=== PATIENT | female | born 1945 | race Caucasian/White ===

== ENCOUNTER 2018-04-12 19:36 | Emergency (ER) | payer MEDICARE, OTHER ==
--- NOTE | 2018-04-12 20:03 | Emergency Department Record ---
History of Present Illness - General Chief Complaint: Fall Injury Stated Complaint: FELL HIT HEAD, HEAEDACHE NAUSEA,DISORIENTED Time Seen by Provider: 04/12/18 19:55 Source: Patient, Family Mode of Arrival: Ambulatory Limitations: No limitations - History of Present Illness Initial Comments: 72 yo female presents after a fall 2 hours ago. She missed a step and hit her head on the door threshold. No LOC. No amnesia. She does have a headache and nausea. No confusion. NO blood thinners. No preceding symptoms. MD Complaint: Fall -: Hour(s) (2) Fall From: Down stairs (#) (1), Standing When Fall Occurred: 1-3 hours [employer] Fall Witnessed: Yes, by bystander Place Fall Occurred: Other Loss of Consciousness: None Prolonged Down Time?: No Symptoms Prior to Fall: None Location: Head Location - Extremities: Left: Elbow Severity: Mild Quality: Aching Context: Other Associated Symptoms: Denies - Micah Coma Scale Eye Response: (4) Open spontaneously Motor Response: (6) Obeys commands Verbal Response: (5) Oriented [place] Total: 15 - Related Data Home Medications Medication Instructions Recorded Confirmed Last Taken Levothyroxine Sodium [Synthroid] 50 mcg PO DAILY 04/12/18 04/12/18 Unknown Multivitamin [Multi-Vitamin Daily] 1 tab PO DAILY 04/12/18 04/12/18 Unknown Omeprazole [Prilosec] 20 mg PO DAILY 04/12/18 04/12/18 Unknown Previous Rx's Medication Instructions Recorded Ondansetron [Zofran Odt] 4 mg PO Q8H #12 tab.rapdis 04/12/18 Allergies Allergy/AdvReac Type Severity Reaction Status Date / Time No Known Drug Allergies Allergy Verified 04/12/18 19:53 Review of Systems Constitutional: Denies: Chills, Fever, Malaise, Weakness Eyes: Denies: Eye discharge, Eye pain, Photophobia, Vision change ENT: Denies: Congestion, Throat pain Respiratory: Denies: Cough, Dyspnea Cardiovascular: Denies: Chest pain, Palpitations, Syncope Endocrine: Denies: Fatigue Gastrointestinal: Reports: Nausea. Denies: Abdominal pain, Diarrhea, Vomiting Genitourinary: Denies: Dysuria, Urgency Musculoskeletal: Denies: Arthralgia, Back pain, Joint swelling, Myalgia Skin: Denies: Bruising, Change in color, Rash Neurological: Reports: Headache. Denies: Abnormal gait, Confusion, Numbness, Tingling, Tremors, Vertigo, Weakness Psychiatric: Denies: Anxiety Hematological/Lymphatic: Denies: Blood Clots, Easy bleeding, Easy bruising, Swollen glands Physical Exam - General General Appearance: Alert, Oriented x3, Cooperative, No acute distress Limitations: No limitations - Head Head exam: Atraumatic, Normocephalic, Normal inspection, Other (tender left zoroastrianism, normal inspection) - Eye Eye exam: Normal appearance, PERRL, EOMI. negative: Conjunctival injection, Nystagmus - ENT ENT exam: Normal exam, Mucous membranes moist Ear exam: Normal external inspection Nasal Exam: Normal inspection Mouth exam: Normal external inspection Teeth exam: Normal inspection Throat exam: Normal inspection - Neck Neck exam: Normal inspection, Full ROM. negative: Tenderness - Respiratory Respiratory exam: Normal lung sounds bilaterally. negative: Respiratory distress - Cardiovascular Cardiovascular Exam: Regular rate, Normal rhythm, Normal heart sounds - GI/Abdominal GI/Abdominal exam: Soft. negative: Tenderness - Rectal Rectal exam: Deferred - exam: Deferred - Extremities Extremities exam: Normal inspection. negative: Full ROM, Joint swelling, Normal capillary refill, Pedal edema, Tenderness - Back Back exam: Reports: Normal inspection. Denies: CVA tenderness (R), CVA tenderness (L) - Neurological Neurological exam: Alert, Normal gait, Oriented X3 - Psychiatric Psychiatric exam: Normal affect, Normal mood. negative: Agitated, Anxious - Skin Skin exam: Dry, Intact, Normal color, Warm Course - Reevaluation(s) Reevaluation #1: 04/12/18 21:08 The HCT was reviewed and is negative for bleed. Chronic changes We discussed the results, concussions, home care and reasons to return Disposition Disposition: Discharge Clinical Impression: Head contusion Disposition: Home, Self-Care Condition: (1) Good Instructions: Concussion (ED), Head Injury (ED) Additional Instructions: Return to ED if your symptoms worsen or if you have any new concerns. Take the prescriptions provided today as directed. Call your family doctor to schedule the next available appointment for a recheck. Review the final Emergency Record and test results with your doctor on follow up Prescriptions: Ondansetron [Zofran Odt] 4 mg PO Q8H #12 tab.rapdis Forms: Patient Portal Access Time of Disposition: 21:09 Quality - Quality Measures Quality Measures: N/A, Blunt Head Trauma (>2yr) - Micah Coma Scale [place] Coma Scale: [place] Coma Scale Eye Response: (4) Open spontaneously Motor Response: (6) Obeys commands Verbal Response: (5) Oriented [place] Total: 15 - Blunt Head Trauma - Adult Quality Measure: Measure #415: Utilization of CT for Minor Blunt Head Trauma ICD10 Codes Entered: Yes Was CT ordered: Yes Does Patient Have Any of the Following: No Exclusions Patient Presented Within 24 Hours of Injury: Yes Micah Score: [address] for Minor Blunt Head Trauma: < CT Done, Appropriate Indication > [G9529] Additional Inclusion Criteria: Within 24hrs (AND) GCS of 15 (AND) CT ordered. [ G9530] Indications For CT: Age 65 Years and Older - Blood Pressure Screening Does Patient Have Any of the Following: Active Dx of HTN Blood Pressure Classification: Hypertensive Reading Systolic Measurement: 143 Diastolic Measurement: 65 Screening for High Blood Pressure: Patient Exclusion, Hx of HTN [G9744]
[2018-04-12] MEDS ORDERED: ONDANSETRON 4 MG ODT TABLET SL ONE (21:18)
--- NOTE | 2018-04-13 20:38 | CT SCAN REPORT ---
EXAM: CT SCAN HEAD WO CONTRAST TECHNIQUE: Standard axial images were obtained with coronal and sagittal postprocessed images. INDICATION: Patient hit head. Possible concussion. Hit left side of head. HAND PREFERENCE: Unknown. PRIORS: None. FINDINGS: There is generalized cortical atrophy. There is periventricular white matter changes. Ventricles, cisterns, and sulci appear symmetric. I do not see abnormal extraaxial fluid collections. The calvarium displays no evidence of fracture. The subcutaneous tissues display no significant scalp soft tissue swelling. IMPRESSIONS: NO ACUTE INTRACRANIAL PROCESS. MILD CHRONIC WHITE MATTER CHANGES. NO EVIDENCE OF HEMORRHAGE, MASS, EDEMA, OR A FRACTURE. JOB NUMBER: [id number] [facility]
== END 2018-04-12 21:46 | disposition home or self-care (01) ==
LOC: ER 19:36
DX: S00.83XA Contusion of other part of head, initial encounter (principal); R51 Headache; R11.0 Nausea; M25.522 Pain in left elbow; I10 Essential (primary) hypertension; W10.9XXA Fall (on) (from) unspecified stairs and steps, initial encounter
CPT/HCPCS: 70450; 99283